=== PATIENT | female | born 1970 | race Caucasian/White ===

== ENCOUNTER → 2020-12-13 | Day surgery (SDC) | payer OTHER, MEDICAID ==
[~2020-12-13] MED LIST: ENOXAPARIN30 MG/0.3 SUBQ; ESTRADIOL 1 MG T1 M1 PO; FUROSEMIDE 20 M20 MG PO; JANTOVEN2.5 MG PO; JANTOVEN5 MG PO; KLOR-CON 10 ER10 MEQ PO; LORATIDINE 10 M10 M1 PO; LORAZEPAM 0.50.5 MG PO; NORCO5 PO; SORINE 80 MG TA80 MG PO
[2020-12-13 06:39] LABS: HEMATOCRIT 40.9 % (37.0-47.0); HEMOGLOBIN 14.2 gm/dL (12.0-15.0); MCH 30.4 pg (26.0-34.0); MCHC 34.6 g/dL (28.0-37.0); MCV 87.9 fL (80.0-100.0); MPV 6.9 fl. (7.2-11.1); RBC 4.66 mil/uL (4.20-5.00); RDW-CV 13.7 % (10.5-14.5); WBC 4.8 thou/uL (4.0-11.0)
[2020-12-13 06:53] LABS: CREATININE 0.8 mg/dL (0.6-1.3); POTASSIUM 3.9 mmol/L (3.5-5.1)
[2020-12-13 06:54] LABS: INR 1.1; PROTIME 11.4 Seconds (9.20-11.50)
[2020-12-13 08:20] LABS: ALBUMIN 3.8 g/dL (3.4-5.0); TOTAL BILIRUBIN 0.6 mg/dL (<0.1-1.0)
--- NOTE | 2020-12-13 14:57 | EKG ---
[place] [address] ELECTROCARDIOGRAM REPORT Name: MALORIE BEAUCHAMP Room: [facility]#: [id number] Admission: 12/13/20 Attend Phys: Judah Delaney Discharge: Date of : 70 Date of Service: 12/13/2030 Report #: [id number] THIS REPORT FOR: //name// [facility] Test Date: 2020-12-13 Test Time: 07:30:08 Pat Name: MALORIE BEAUCHAMP Department: Room: Gender: F Customer Account Executive: Isaac FREEDMAN RN : 1970 Requested By: Judah Camacho Order Number: [id number] Joseluis MD: Benjamin Rodriguez Measurements Intervals [place] Rate: 70 P: 81 [place]: 160 QRS: 36 QRSD: 97 T: 31 QT: 404 QTc: 436 Interpretive Statements Sinus rhythm Baseline wander in lead(s) V6 No previous ECG available for comparison Electronically Signed On 12-13-2020 14:57:34 CDT by Benjamin Rodriguez [email or web address] <ELECTRONICALLY SIGNED> By: Benjamin Rodriguez MD, [facility] 12/13/20 1457 9 9 Benjamin Rodriguez MD, [facility] /EPI
--- NOTE | 2020-12-17 19:07 | PATH ---
[facility] [address] [place] [address] PATHOLOGY RPT PROCEDURE Name: MALORIE BEAUCHAMP Room: [facility].#: [id number] Admission: 12/13/20 Date of : 70 Discharge: Report #: [id number] Path Case #: [id number] [facility] Accession Number: [id number] . 01 Material submitted: . gallbladder - GALLBLADDER . 01 Clinical history: . LAPAROSCOPIC CHOLECYSTECTOMY CALCULUS OF GALLBLADDER . 02 Diagnosis: Gallbladder, excision: - Mild chronic cholecystitis; negative for malignancy. - Cholesterolosis. - Lithiasis. (MLK:pit; 12/17/2020) QTP 12/17/2020 1519 Local . 02 Electronically signed: . Nadira Balderrama MD, Pathologist NPI- [id number] . 01 Gross description: . Fixative: Formalin Labeled: Gallbladder in formalin Specimen received: An intact gallbladder Dimensions: 8.0 x 3.5 x 3.2 cm Serosa: Landaverde-kraus, smooth and well vascularized. Lymph node: Not identified Mucosa: Landaverde-brown with areas of yellow stippling Average wall thickness: 0.2 Calculi: Multiple yellow, bosselated, friable calculi measuring 3.5 x 3.0 x 0.5 cm in aggregate. Multiple stones are identified lodged within the cystic duct. 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 (MRF; 12/13/2020) MFE/MFE 12/13/2020 1928 Local . 02 Pathologist provided ICD-10: K80.10, K82.4 . 02 CPT . 992248 Specimen Comment: A courtesy copy of this report has been sent to [phone] Specimen Comment: Report sent to Performed at: [address] [place] [address] PATHOLOGY RPT PROCEDURE Name: MALORIE BEAUCHAMP Room: [facility]#: [id number] Admission: 12/13/20 Date of : 70 Discharge: Report #: [id number] Path Case #: [id number] [facility] [address] [place] [address] [address], [place], [place] [id number] MD Johnny Santiago MD Phone: [phone] Performed at: [address] [id number] MD Grzegorz Strong MD Phone: [phone]
--- NOTE | 2020-12-18 17:05 | OP ---
[facility] [address] [place] [address] OPERATIVE REPORT Name: MALORIE BEAUCHAMP Room: [facility].#: [id number] Admission: 12/13/20 Attend Phys: Judah Camacho Discharge: Date of : 70 Report #: [id number] THIS REPORT FOR: cc: YOHANA NGUYEN NP Physician not on staff Judah Camacho MD ~ DATE OF SURGERY: 12/13/2020 PREOPERATIVE DIAGNOSIS: Symptomatic cholelithiasis. POSTOPERATIVE DIAGNOSIS: Symptomatic cholelithiasis. OPERATION: Laparoscopic cholecystectomy. SURGEON: Judah Camacho MD ANESTHESIA: General. ESTIMATED BLOOD LOSS: Minimal. SPECIMENS: Gallbladder. DESCRIPTION OF PROCEDURE: After informed consent was obtained, the patient was brought to the operating room and placed supine. SCDs were placed and working, preoperative antibiotics were administered, general anesthesia was induced. The abdomen was prepped and draped in the usual sterile fashion. A 10 mm incision was made below the umbilicus. Fascia was incised and a trocar was placed. Pneumoperitoneum was established. Three right upper quadrant 5 mm ports were placed. Gallbladder was grasped at the fundus and retracted cephalad. Infundibulum was grasped and retracted laterally. I dissected out the cystic duct and cystic artery. Cystic plate was fully identified. Cystic duct and artery were clipped and ligated leaving 2 clips on the remaining duct and one on the remaining artery. Gallbladder was then taken off the liver bed with electrocautery. It was placed into an Endopouch and removed. The fascia was then closed with a shfioe-ag-yxgau 0 Vicryl. Skin was closed with 4-0 Monocryl. Incisions were sealed with Steri-Strips. COMPLICATIONS: None. DISPOSITION: The patient was taken to recovery in satisfactory condition. <ELECTRONICALLY SIGNED> By: Judah Camacho MD 12/18/20 1705 0732 [id number] Camacho MD /nt
== END | disposition home or self-care (01) ==
LOC: M.SUR 06:14
PROVIDERS: ATTEND Surgery
DX: K80.10 Calculus of gallbladder with chronic cholecystitis without obstruction (principal); R10.11 Right upper quadrant pain; Z98.890 Other specified postprocedural states; Z79.899 Other long term (current) drug therapy; Z20.822 Contact with and (suspected) exposure to COVID-19; Z79.01 Long term (current) use of anticoagulants; Z88.0 Allergy status to penicillin; Z88.2 Allergy status to sulfonamides; Z88.8 Allergy status to other drugs, medicaments and biological substances